=== PATIENT | male | born 1975 | race American Indian/Alaskan Native ===

== ENCOUNTER 2018-06-08 10:32 | Day surgery (SDC) | payer OTHER ==
[2018-06-08 11:00] VITALS: BMI 32.8
[2018-06-08] MEDS ORDERED: Lidocaine 1% 5ml Abboject IV ONE (12:29)
--- NOTE | 2018-06-08 12:47 | CP.SDSHP ---
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 Pt. Evaluated Today:Candidate for Anesthesia & Procedure: No - Date & Time Date: 06/08/18 Time: 12:40 Short Stay Discharge - Short Stay Discharge Admitting Diagnosis/Reason for Visit: LYME DISEASE Disposition: HOME/ ROUTINE Referrals: Jazmine Proctor [Primary Care Provider] -
--- NOTE | 2018-06-08 12:48 | PCM.SURG1 ---
Surgeon's Initial Post Op Note - Surgeon's Notes Surgeon: Aston Cervantes MD Sales And Merchandising Associate: NONE Type of Anesthesia: Local Pre-Operative Diagnosis: Lyme disease Operative Findings: US showed a patent left basilic vein Post-Operative Diagnosis: Lyme disease Operation Performed: Picc placement left arm, 48 cm. Specimen/Specimens Removed: NONE Estimated Blood Loss: EBL {In ML}: 2 Blood Products Given: N/A Drains Used: No Drains Post-Op Condition: Good Date of Surgery/Procedure: 06/08/18 Time of Surgery/Procedure: 12:45
--- NOTE | 2018-06-08 12:57 | VASCULAR ---
PROCEDURE: Date of procedure: 06/08/2018 Procedure: 1. Placement of a left arm PICC with ultrasound and fluoroscopic guidance, CPT 08190 2. PICC tip confirmation with spot radiograph and is in the superior vena cava Medications: 1 percent lidocaine Total Fluoro time: 16 seconds Radiation: 2.34 MGy EBL: 3 cc HISTORY: Infection requiring long-term IV antibiotics TECHNIQUE: Following informed consent and procedure time-out, the patient placed supine on the interventional table and the left arm prepped and draped in the usual sterile fashion. Ultrasound showed a patent and compressible left brachial vein. After the skin was anesthetized with lidocaine, the brachial vein was accessed with micro micropuncture technique using ultrasound guidance. A guidewire was then advanced under fluoroscopic guidance into the superior vena cava. An image documenting ultrasound guidance for vascular access was permanently saved. The length of a single-lumen 4 [place] PICC was trimmed to 48 cm and advanced through a peel-away sheath. The PICC was position with tip of PICC confirm a spot radiograph the superior vena cava. The PICC was secured to the patient's skin. The PICC was flushed. A biopatch and sterile dressing was applied. IMPRESSION: Placement of a single-lumen 4 [place] PICC left brachial vein trimmed to 48 cm. The tip of the PICC is confirmed with spot radiograph and is in the superior vena cava.
[2018-06-08 13:20] VITALS: RESP 18
[2018-06-08 13:37] VITALS: BP 146/78; PULSE 72; TEMP 97; O2SAT 96
== END 2018-06-08 13:30 | disposition home or self-care (01) ==
LOC: H.OPSURG 10:32
PROVIDERS: ATTEND Internal Medicine
DX: A69.20 Lyme disease, unspecified (principal)
CPT/HCPCS: 36569; 76937; 77001; A4310; C1751